=== PATIENT | female | born 1950 | race Two or more races ===

== ENCOUNTER 2022-12-11 14:00 | Outpatient (RCR) | payer MEDICARE, BC, SELFPAY | END 2023-01-17 14:54 | disposition home or self-care (01) | LOC: HO.PT 14:00 | PROVIDERS: PCP Specialist; Visit Provider Nurse Practitioner | DX: M99.05 Segmental and somatic dysfunction of pelvic region (principal) | CPT/HCPCS: 97110; 97112; 97140; 97162 ==

== ENCOUNTER → 2023-07-16 13:48 | Outpatient (BNVA) | payer MEDICARE, BC, SELFPAY | PROVIDERS: PCP Specialist; Visit Provider Nurse Practitioner Family | DX: G96.191 Perineural cyst (principal); G03.9 Meningitis, unspecified; M54.50 Low back pain, unspecified; M54.18 Radiculopathy, sacral and sacrococcygeal region; G89.29 Other chronic pain; Z79.899 Other long term (current) drug therapy | CPT/HCPCS: 99202 ==

== ENCOUNTER 2023-07-16 13:55 | Outpatient (AMB) | payer MEDICARE, BC, SELFPAY ==
--- NOTE | 2023-07-16 13:56 | MHC.OFFVIS ---
Intake Vital Signs 07/16/23 14:08 Height 5 ft 3 in Weight 158 lb BMI 28.0 BP 156/74 H Blood Pressure Location Lt brachial Position Sitting Pulse 90 Pulse Source Pulse Oximeter Pulse Oximetry (%) 98 Oxygen Delivery Method Room Air Intake Visit Reasons: CHRONIC LOW BACK PAIN Intake Note: Pain today 09/29 [employer] Service Representative Required: No Accompanied by: Self / Same As Patient Allergies chocolate Allergy (Unknown, Verified 07/16/23 14:45) Diarrhea lactose Allergy (Unknown, Verified 07/16/23 14:45) Diarrhea Penicillins Allergy (Unknown, Verified 07/16/23 14:45) Unknown pollen extracts Allergy (Unknown, Verified 07/16/23 14:45) Sneezing HPI CHRONIC LOW BACK PAIN HPI Details Patient is a 72 years old female with complex medical history, notable for adhesive arachnoiditis, symptomatic S2 Tarlov cysts, chronic low back pain with neurogenic claudication, chronic pelvic floor pain with bladder/bowel dysfunction and recurrent UTIs, cervical and lumbar DDD, presents today to discuss Ketorolac and potential Methylprednisolone injections for adhesive arachnoiditis (AA). Denies any past or recent trauma, injury, infection or malignancy. Reports history of several falls. Patient reports Ketorolac injections have been recommended by her Pain Specialist Dr. Mello Tristan in [place] whose office does not accommodate for such injections and nearest center for injections is over one hour. She has also consulted with Dr. John Barry who also recommended regular Ketorolac 15-30 mg every 2 weeks injections for AA. She has pending lab work order prior to start of injections. Patient reports she has became symptomatic with S2 Tarlov cysts about 5 years ago. Her symptoms were intermittent since 2021 but currently symptoms are more consistent. Patient has done a great deal of research regarding this condition and has consulted in [place], [place] (Dr. Rodriguez), and [place] ([facility]) neurosurgeons who specialize in this and was considering surgery but is concerned about potential risks with the surgery as well as worsening of chronic low back pain after the surgery. Patient reports current cysts are measuring 1.3 cm and 1.4 cm at S2 level and was told she might have additional cysts. These cysts are causing nerve root compression which correlates with patient's symptoms of sacral radiculopathy. Patient reports she was planning to undergo S2 nerve blocks with Dr. Casey but was recently told that Dr. Casey made decision not to proceed due to potentially high risk of complications, including postoperative CSF leak, neurological deficit, worsening of chronic low back pain and cyst reoccurrence. Most of her pain is localized to pelvic area and lower back pain with bilateral leg pain, burning foot pain, numbness and burning vaginal pain. Reports intermittent bladder incontinence with occasional bowel incontinence. Denies saddle anesthesia. Patient also reports progressively worsening imbalance and gait disturbance with dizziness and headaches. Reports bilateral leg weakness, right>left, She has difficulty sleeping on her back or sit for more than 15-20 minutes. She has decreased tolerance navigating stairs, walking, standing and lifting. Patient also reports intermittent numbness in the perineal area and muscle spasms in her pelvic and buttocks. Symptoms relieved by laying down. Currently rates pain 6-7/10 (after pain medication), worst pain 10/10 and least severe pain 4-5/10. Patient has tried skilled physical therapy, massage therapy, chiropractor therapy, pelvic floor PT, natural osip-piz-ndaavlo supplements for neuropathy in her feet, curamin and tumeric, B complexes, Palmitoylethanolamide (PEA) Mirica tablets, oral Ketorolac and Methylprednisolone, gabapentin. She also tried amitriptyline and pregabalin. Oswestry Low Back Disability Score-32 (severe disability) Location Lower back, pelvic floor, perineium numbness and burning Duration Chronic pain >5 years , worsening since 2021 Characteristics of symptom or complaint Aching, burning, spasming, throbbing, stabbing, numbness, tingling Aggravating or associated factors Prolonged sitting, walking, standing, movements, bending, lifting Relieving factors Lying down, oral/topical medications, decreased activity, heat, gabapentin Treatment Pelvic floor PT-made it worse; TENS unit, massage, chiropractic therapy [facility] Medical History (Updated 07/16/23 @ 22:09 by SALVATORE Benitez) Sacral radiculopathy Varicose veins of both lower extremities HLD (hyperlipidemia) HTN (hypertension) Chronic low back pain Adhesive arachnoiditis Tarlov cysts PND (post-nasal drip) TMJ (dislocation of temporomandibular joint) Ulcerative colitis UTI (urinary tract infection) PONV (postoperative nausea and vomiting) Hx of ectopic Panic attacks Anxiety Surgical History (Updated 07/16/23 @ 14:26 by Mandi Cade) History of dental surgery Hx of appendectomy Social History (Updated 07/16/23 @ 14:26 by Mandi Cade) Alcohol intake: never Patient Tobacco Use Status: Former Tobacco user Quit Date: 04/22/2001 Tobacco use type: Cigarette Review of Systems Const All systems reviewed & are unremarkable except as noted in HPI and below Physical Exam Vital Signs: Last Vital Signs Pulse 90 07/16/23 14:08 BP 156/74 H 07/16/23 14:08 Pulse Ox 98 07/16/23 14:08 Oxygen Delivery Method Room Air 07/16/23 14:08 BMI result Body Mass Index 28.0 General: Appears afebrile. Alert and oriented. Mood and affect appropriate. Follows and participates in conversation appropriately. Respiratory effort is unlabored. No cough. Able to transition from sit to stand unassisted. Ambulates with bilaterally guarded heel strike and toe off, reports imbalance and gait disturabances, right>left. Back/Spine/Pelvis Other: Limited lumbar ROM, antalgic gait, wide based with mild limping. Can flex forward to 60-65 degrees and extend to 5-10 degrees before experiencing lumbar pain. Demonstrates 5/5 strength of quadriceps bilaterally as well as flexion/dorsiflexion of bilateral feet against resistance. 2+ pedal pulses bilaterally. Seated straight leg rise with dorsiflexion negative bilaterally. +1 patellar and diminished achilles reflexes bilaterally. Facet loading test positive bilaterally. Thony?s, Pelvic compression and Stinchfield tests are positive bilaterally. No groin pain with I/E hip rotations. Moderate paraspinals tenderness bilateral mid and lower back, and mild TTP in gluteal muscles. Valsalva maneuver positive. Results Reviewed Results Reviewed: Assessment & Plan Assessment & Plan (1) Tarlov cysts: Code(s): G96.191 - Perineural cyst (2) Adhesive arachnoiditis: Code(s): G03.9 - Meningitis, unspecified (3) Chronic low back pain: Code(s): M54.50 - Low back pain, unspecified; G89.29 - Other chronic pain (4) Sacral radiculopathy: Code(s): M54.18 - Radiculopathy, sacral and sacrococcygeal region Plan Patient presented today seeking establishment of regular Ketorolac and potential methylprednisolone injections for Adhesive arachnoiditis. She has been taking these medications orally with partial benefit. I have informed patient that our office is not set up for these injections and provided her with contact information with our hospital Medical Short Stay department information phone and fax where her current Pain Specialist Dr. Tristan can fax orders and patient can receive regular Ketorolac and Methylprednisolone injections. We briefly discussed interventional treatments for chronic low back pain with axial and facetogenic components, including epidural steroid injections and neuromodulation with spinal cord stimulation. Patient is interested to pursue further Neurosurgical evaluation for worsening sacral radiculopathy symptoms due to S2 Tarlov cysts as this has been her main and most concerning pain generator. Patient reports she was planning to undergo S2 nerve blocks with Dr. Casey who recently made decision not to proceed due to potentially high risk of complications, including postoperative CSF leak, neurological deficit, worsening of chronic low back pain and cyst reoccurrence. Patient reports image-guided aspiration of symptomatic Tarlov cysts was also discussed by other providers but not recommended. Continue Tylenol NSAIDs, gabapentin and activity modifications. All questions and concerns have been answered and patient agreed with the plan. Follow up as needed. Coding Level of Care Code New Pt Level 4 (99166) Diagnoses Tarlov cysts G96.191 Adhesive arachnoiditis G03.9 Chronic low back pain M54.50; G89.29 Sacral radiculopathy M54.18
[2023-07-16 14:08] VITALS: BP 156/74; PULSE 90; O2SAT 98; BMI 28.0
== END 2023-07-16 14:49 | disposition home or self-care (01) ==
PROVIDERS: PCP Specialist; Visit Provider Nurse Practitioner Family
DX: G96.191 Perineural cyst (principal); G03.9 Meningitis, unspecified; M54.50 Low back pain, unspecified; G89.29 Other chronic pain; M54.18 Radiculopathy, sacral and sacrococcygeal region
CPT/HCPCS: 99204